=== PATIENT | female | born 1940 | race Caucasian/White ===

== ENCOUNTER 2019-12-16 10:51 | Inpatient (IN) | payer OTHER, MEDICARE, SELFPAY ==
[~2019-12-16] VITALS: Ht 152.4 cm; Wt 65.8 kg
[2019-12-16 10:55] VITALS: BP_SYST 129
--- NOTE | 2019-12-16 10:55 | NUR ---
Patient to ER bed 06 to gown for evaluation. Side rails up.
--- NOTE | 2019-12-16 10:58 | NUR ---
Patient arrived in the ED FOR MEDICAL CLEARANCE BEFORE CHECKING IN AT [facility]. Denied any chest pain or shortness of breath. Denied any fevers, chills, nausea or vomiting. Patient is alert and oriented x4, respirations even and unlabored, speaking in full sentences, and ambulating with a steady gait. VSS, pain level 0/10. SON AT BEDSIDE. Informed of the approximate wait time. Instructed to notify ED staff for any changes in condition or worsening of symptoms while waiting to be seen by an ED provider. Patient verbalized understanding.
--- NOTE | 2019-12-16 11:07 | NUR ---
ER Dr. Dubose at bedside examining patient.
--- NOTE | 2019-12-16 11:14 | NUR ---
central sterile supply technician at bedside collecting blood specimen as ordered by Dr. Dubose. Patient tolerated the procedure well.
[2019-12-16 11:34] LABS: BASOPHILS % (AUTO) 0.8 % (0.0-2.0); EOSINOPHILS # (AUTO) 0.1 K/uL (0.0-0.4); EOSINOPHILS % (AUTO) 1.3 % (0.0-4.0); HEMOGLOBIN 13.5 g/dL (12.0-16.0); LYMPHOCYTES # (AUTO) 0.8 K/uL (1.0-5.5); LYMPHOCYTES % (AUTO) 17.2 % (20.5-51.5); MEAN CORPUSCULAR HEMOGLOBIN 30 pg (27-31); MEAN CORPUSCULAR HGB CONC 33 % (32-36); MEAN CORPUSCULAR VOLUME 93 fL (79.0-98.0); MONOCYTES # (AUTO) 0.3 K/uL (0.0-1.0); MONOCYTES % (AUTO) 6.7 % (1.7-9.3); NEUTROPHILS # (AUTO) 3.4 K/uL (1.8-7.7); PLATELET COUNT (AUTO) 88 K/uL (130-430); RED BLOOD CELL COUNT(AUTO) 4.42 MIL/uL (4.2-6.2); RED CELL DISTRIBUTION WIDTH 16.7 % (9.0-15.0); WHITE BLOOD COUNT (AUTO) 4.6 K/uL (4.8-10.8)
--- NOTE | 2019-12-16 11:39 | NUR ---
X-ray done at bedside as ordered by Dr. Dubose. Patient tolerated the procedure well.
[2019-12-16 11:43] LABS: ANION GAP 11 (5-15); CALCIUM 8.8 mg/dL (8.4-11.0); CHLORIDE 101 mmol/L (98-107); CREATININE 0.73 mg/dL (0.55-1.30); GLUCOSE 98 mg/dL (70-99); POTASSIUM 3.8 mmol/L (3.5-5.1); SODIUM SERUM 141 mmol/L (136-145); UREA NITROGEN, BLOOD 20 mg/dL (8-21)
[2019-12-16 11:49] LABS: ALANINE AMINOTRANSFERASE 40 U/L (12-78); ALBUMIN 3.7 g/dL (3.4-4.8); ASPARTATE AMINOTRANSFERASE 61 U/L (10-37); TOTAL BILIRUBIN 0.6 mg/dL (0.0-1.0)
[2019-12-16 11:50] LABS: INR 0.9 (0.8-1.2); PROTHROMBIN TIME 9.5 SECS (9.5-12.5)
[2019-12-16 12:14] LABS: ACETAMINOPHEN < 1 ug/mL (1-30); ALCOHOL, BLOOD 358 mg/dL (<10)
--- NOTE | 2019-12-16 14:34 | NUR ---
Received admitting orders from Dr. Maldonado. Awaiting bed assignment.
--- NOTE | 2019-12-16 14:44 | NUR ---
Patient will be admitted to care of Dr. Maldonado. Admitted to Telemetry unit. Will go to room 105A. Belongings list completed. Complete and up to date summary report printed. SBAR report to be given at bedside with opportunity for questions.
[2019-12-16] MEDS ORDERED: FOLIC ACID 1 MG, THIAMINE HCL 100 MG, MAGNESIUM SULFATE 1 GM, MVI 10 ML in NACL 0.9% 1,... IV ONE ×2 (14:45→15:15)
[2019-12-16] MEDS ORDERED: NACL 0.9% 1,000 ML IV ONE (14:45)
--- NOTE | 2019-12-16 14:55 | NUR ---
ADMIT NOTE Received pt from ER to the floor with a diagnosis of Acute Alcohol Withdrawal. Admission process initiated. patient oriented to pain management, safety and call light-teach back done.
[2019-12-16 15:03] VITALS: BP_SYST 125
[2019-12-16] MEDS ORDERED: ACETAMINOPHEN 325 MG TABLET PO PRN (15:15)
[2019-12-16] MEDS ORDERED: LORazepam 2 MG/ML VIAL IVP PRN (15:15)
[2019-12-16] MEDS ORDERED: ONDANSETRON HCL 4 MG/2 ML VIAL IVP PRN (15:15)
[2019-12-16] MEDS ORDERED: FOLIC ACID 1 MG, MVI 10 ML in NACL 0.9% 1,000 ML IV ONE (15:15)
[2019-12-16] MEDS ORDERED: POTASSIUM CHLORIDE 20 MEQ TAB.PRT.SR PO PRN (15:15)
[2019-12-16] MEDS ORDERED: DOCUSATE SODIUM 100 MG CAPSULE PO PRN (15:15)
[2019-12-16] MEDS ORDERED: MAGNESIUM SULFATE 50 ML IV PRN (15:15)
[2019-12-16] MEDS ORDERED: MUPIROCIN 2% TOPICAL OINTMENT 22 GM NS PRN (15:15)
[2019-12-16] MEDS ORDERED: THIAMINE HCL 100 MG, MAGNESIUM SULFATE 1 GM in NS 100 ML IV ONE (15:15)
[2019-12-16] MEDS ORDERED: ZOLPIDEM TARTRATE 5 MG TABLET PO PRN (15:15)
[2019-12-16] MEDS ORDERED: THIAMINE HCL 100 MG TABLET PO ONE (15:30)
[2019-12-16] MEDS ORDERED: FOLIC ACID 1 MG TABLET PO ONE (15:30)
[2019-12-16] MEDS: chlordiazePOXIDE HCL 25 MG CAPSULE PO SCH ×2 (15:54→21:29)
--- NOTE | 2019-12-16 16:20 | NUR ---
HELPED PT CALL THROUGH PHONE. NO ACUTE DISTRESS NOTED. ALL NEEDS MET. CALL LIGHT IN REACH. CONTINUE TO MONITOR.
--- NOTE | 2019-12-16 16:26 | NUR ---
PT STATED AND CONSENTED TO CALL CACHORRO DIAMOND FOR [employer].
--- NOTE | 2019-12-16 16:29 | NUR ---
SPOKE TO CACHORRO DIAMOND [phone], STATED HE WILL BE ABLE TO GIVE A MED LIST OVER THE PHONE WHEN HE CAN GET THE MEDICATION LIST AT THE HOUSE. GAVE HIM NUMBER TO CALL BACK [phone].
--- NOTE | 2019-12-16 18:21 | NUR ---
PT C/O FEELING ANXIOUS, ADMINISTERED PRN ANXIETY MED ORDERED PER MD, EDUCATION GIVEN, TOLERATED WELL. CONTINUE TO MONITOR.
--- NOTE | 2019-12-16 18:55 | NUR ---
CLOSING NOTES PT AWAKE ALERT AND ORIENTED. WATCHING TV IN BED. NONLABORED BREATHING NOTED ON ROOM AIR. IV LINE INTACT AND PATENT, NO SIGNS OF INFILTRATION NOTED, FLUIDS RUNNING ORDERED. NO ACUTE DISTRESS NOTED. ALL NEEDS MET. CALL LIGHT IN REACH. FALL AND ASPIRATION PRECAUTIONS IN PLACE. WILL ENDORSE TO [facility] NURSE INCLUDING MED RECON INFO, STILL AWAITING CALL BACK.
--- NOTE | 2019-12-16 19:30 | NUR ---
Initial Notes: Received report from daysantwanft RN. Patient is in bed, resting. No acute distress. Breathing is even, nonlabored on room air. IV fluids infusing as ordered. Bed is locked at lowest position. Bed alarm on. Side rails up x3. Call light is with patient. Safety and fall precautions in place. Will continue with plan of care.
[2019-12-16 20:00] VITALS: BP_SYST 133
[2019-12-16] MEDS ORDERED: HEPARIN SODIUM,PORCINE 5,000 UNITS/ML VIAL SUBCUT SCH (21:00)
--- NOTE | 2019-12-16 22:00 | NUR ---
Rounds: Patient is resting in bed. No acute distress. Breathing is even, nonlabored on room air. Call light is with patient. Safety and fall precautions in place. Will continue to monitor.
[2019-12-17] VITALS: BP_SYST 136
--- NOTE | 2019-12-17 00:15 | NUR ---
Rounds: Patient is sleeping in bed. No acute distress. Respirations are even, nonlabored on room air. Call light is with patient. Safety and fall precautions in place. Will continue monitoring.
--- NOTE | 2019-12-17 02:31 | NUR ---
Rounds: Patient is sleeping in bed. No s/s acute distress. Even, nonlabored breathing on room air. Call light is with patient. Safety and fall precautions in place. Will continue monitoring.
--- NOTE | 2019-12-17 04:30 | NUR ---
Rounds: Patient is sleeping in bed. No acute distress. Breathing is even, nonlabored on room air. Call light is with patient. Safety and fall precautions in place. Will continue monitoring.
[2019-12-17 06:11] LABS: BASOPHILS % (AUTO) 0.7 % (0.0-2.0); EOSINOPHILS # (AUTO) 0.1 K/uL (0.0-0.4); EOSINOPHILS % (AUTO) 2.4 % (0.0-4.0); HEMATOCRIT 36.7 % (36-48); LYMPHOCYTES # (AUTO) 0.8 K/uL (1.0-5.5); LYMPHOCYTES % (AUTO) 24.3 % (20.5-51.5); MEAN CORPUSCULAR HEMOGLOBIN 30 pg (27-31); MEAN CORPUSCULAR HGB CONC 33 % (32-36); MEAN CORPUSCULAR VOLUME 93 fL (79.0-98.0); MONOCYTES # (AUTO) 0.3 K/uL (0.0-1.0); NEUTROPHILS # (AUTO) 2.2 K/uL (1.8-7.7); NEUTROPHILS % (AUTO) 63.6 % (40.0-70.0); PLATELET COUNT (AUTO) 67 K/uL (130-430); RED BLOOD CELL COUNT(AUTO) 3.96 MIL/uL (4.2-6.2); RED CELL DISTRIBUTION WIDTH 16.7 % (9.0-15.0); WHITE BLOOD COUNT (AUTO) 3.5 K/uL (4.8-10.8)
--- NOTE | 2019-12-17 06:24 | NUR ---
Closing note: Patient is in bed, resting. Showing no signs of acute distress. Breathing is even, nonlabored on room air. IV site is patent, intact, and saline locked. All needs met. Bed is locked at lowest position. Side rails up. Bed alarm on. Call light is with patient. Safety and fall precautions in place. Will endorse care to dayshift RN.
[2019-12-17 06:30] LABS: ANION GAP 5 (5-15); CALCIUM 8.5 mg/dL (8.4-11.0); CHLORIDE 100 mmol/L (98-107); CREATININE 0.61 mg/dL (0.55-1.30); GLUCOSE 112 mg/dL (70-99); POTASSIUM 3.6 mmol/L (3.5-5.1); SODIUM SERUM 135 mmol/L (136-145); UREA NITROGEN, BLOOD 17 mg/dL (8-21)
--- NOTE | 2019-12-17 07:31 | NUR ---
Opening Note received bedside SBAR report from cook night RN, patient resting in bed, respirations even and unlabored on room air, no acute distress noted, room close to nurses station, educated patient on use of call light and asked to call for assistance, patient verbalized understanding, call light in reach, bed in low and locked position, bed alarm on.
--- NOTE | 2019-12-17 07:55 | NUR ---
Physician Rounds Dr. Maldonado at bedside examining patient. Addendum: 12/17/19 at 0840 by Pavithra Alejandre RN informed Dr. Maldonado that patients platelets this morning were 67, orders received to d/c heparin, verified with read back.
[2019-12-17 08:00] VITALS: BP_SYST 147
[2019-12-17] MEDS: FOLIC ACID 1 MG TABLET PO SCH (08:23)
[2019-12-17] MEDS: THIAMINE HCL 100 MG TABLET PO SCH (08:23)
[2019-12-17] MEDS: chlordiazePOXIDE HCL 25 MG CAPSULE PO SCH ×3 (08:23→20:05)
--- NOTE | 2019-12-17 08:40 | NUR ---
Bedside Commode patient requesting to use bedside commode, assisted patient to bedside commode, maximum assistance required for transfer, patient had BM x1, formed, voided x1, unable to collect urine sample due to it being contaminated with stool, linen changed, assisted patient with cleaning, patient back resting in bed, patient tolerated well.
--- NOTE | 2019-12-17 08:58 | NUR ---
CONSULT PSYCH ALCOHOL ABUSE DR GIRALDO,SAID [phone] S/W [employer] FACESHEET FAXED TO [phone]
[2019-12-17 09:39] LABS: ALBUMIN 3.2 g/dL (3.4-4.8); BILIRUBIN,DIRECT 0.3 mg/dL (0.0-0.3); THYROID STIMULATING HORMONE 2.12 uIu/mL (0.34-4.82); TOTAL BILIRUBIN 1.1 mg/dL (0.0-1.0)
--- NOTE | 2019-12-17 10:49 | NUR ---
RN Rounds patient sitting up in bed, resting, patient denies any pain, no acute distress noted.
[2019-12-17 12:09] VITALS: BP_SYST 133
--- NOTE | 2019-12-17 12:30 | NUR ---
Physical Therapy patient ambulating in wheeler with physical therapy, tolerating well.
--- NOTE | 2019-12-17 14:05 | NUR ---
Store Product Demonstrator: met with ETOH pt. HR MANAGER met with pt. bedside. She was alert and awake. She was asking for coffee and her ultrasound and then she wanted to go home. She was agreeable to this interview. When asked, she stated she was in the hospital for drinking too much. She said about two months ago, she fell because she had been drinking. She had to have hip surgery. Pt. stated she has tried AA and Jesika Meier, but now she just wants to go home. When asked if she has ever been Dx. with any mental health issues, pt. said no, but she feels she is depressed. She said she would talk to the attending, Dr. Maldonado. Pt. denied having any suicidal ideations. She said she has family support. She drinks 1/2-1 pint of Vodka daily and will consider decreasing this amount. She said she has to manage a lot of property, but hired a reliable qa manager. She said she still needs to decompress at night and will have a drink. HR MANAGER explained to pt. if she were to find a therapist, she would get assistance with support, other efficient coping mechanisms and help her with insight why she is abusing drinking. HR MANAGER asked pt. if she could leave some resources for her. Pt. was agreeable. HR MANAGER will remain available as needed.
--- NOTE | 2019-12-17 15:36 | NUR ---
RN Rounds patient sitting up in bed drinking coffee, respirations even and unlabored on room air, patient denies any pain, no acute distress noted.
[2019-12-17 16:12] VITALS: BP_SYST 130
--- NOTE | 2019-12-17 17:37 | NUR ---
RN Rounds patient sitting up in bed eating dinner, tolerating well, no acute distress noted, patient denies any nausea or vomiting, patient denies any pain.
--- NOTE | 2019-12-17 18:17 | NUR ---
Patient out of bed patient attempting to ambulate without calling for assistance, unsteady gait, patient using bedside commode for support, RN immediately assisted patient, directed patient back to bed, patient yelled "if Sandra can have his temperature taken six times a day then I can have mine taken once", patient believes that she is going to get COVID-19 from being hospitalized, assisted patient back to bed, took patients temperature with charge out clerk at bedside, temp 98.4, patient is now calm, reinforced education on fall prevention and encouraged patient to call for assistance, patient verbalized understanding, call light in reach, bed in low and locked position, bed alarm on, patient sitting up in bed eating dinner.
--- NOTE | 2019-12-17 19:18 | NUR ---
Closing Note bedside SBAR report given to receiving RN, patient resting in bed, respirations even and unlabored on room air, room close to nurses station, side rails padded, educated patient on use of call light and asked to call for assistance, patient verbalized understanding, call light in reach, bed in low and locked position, bed alarm on, care endorsed to Raisa RESENDEZ.
--- NOTE | 2019-12-17 19:30 | NUR ---
Initial Notes: Received report from dayshift RN. Patient is in bed, watching TV. No acute distress. Breathing is even, nonlabored on room air. IV is patent, intact and saline locked. Bed is locked at lowest position. Bed alarm on. Side rails up x3. Call light is with patient. Safety and fall precautions in place. Will continue with plan of care.
[2019-12-17 20:00] VITALS: BP_SYST 130
[2019-12-18] VITALS: BP_SYST 146
--- NOTE | 2019-12-18 00:15 | NUR ---
Rounds: Patient is watching TV in bed. Showing no signs of acute distress. Respirations are even, nonlabored on room air. Call light is with patient. Safety and fall precautions in place. Will continue monitoring.
--- NOTE | 2019-12-18 02:30 | NUR ---
Rounds: Patient is in bed, watching TV. No signs of acute distress. Even, nonlabored breathing on room air. Call light is with patient. Safety and fall precautions in place. Will continue to monitor.
--- NOTE | 2019-12-18 04:38 | NUR ---
Rounds: Patient is sleeping in bed. No acute distress. Even, nonlabored respirations. Call light is with patient. Safety and fall precautions in place. Will continue to monitor.
--- NOTE | 2019-12-18 06:09 | NUR ---
Closing note: Patient is in bed, resting. Showing no signs of acute distress. Breathing is even, nonlabored on room air. IV site is patent, intact, and saline locked. All needs met. Bed is locked at lowest position. Side rails up x3. Bed alarm on. Call light is with patient. Safety and fall precautions in place. Will endorse care to dayshift RN.
[2019-12-18 06:22] LABS: BASOPHILS % (AUTO) 0.6 % (0.0-2.0); EOSINOPHILS # (AUTO) 0.2 K/uL (0.0-0.4); EOSINOPHILS % (AUTO) 5.4 % (0.0-4.0); HEMATOCRIT 40.8 % (36-48); HEMOGLOBIN 13.3 g/dL (12.0-16.0); LYMPHOCYTES % (AUTO) 30.9 % (20.5-51.5); MEAN CORPUSCULAR HEMOGLOBIN 30 pg (27-31); MEAN CORPUSCULAR HGB CONC 33 % (32-36); MEAN CORPUSCULAR VOLUME 93 fL (79.0-98.0); MONOCYTES # (AUTO) 0.3 K/uL (0.0-1.0); MONOCYTES % (AUTO) 8.3 % (1.7-9.3); NEUTROPHILS # (AUTO) 1.8 K/uL (1.8-7.7); NEUTROPHILS % (AUTO) 54.8 % (40.0-70.0); PLATELET COUNT (AUTO) 71 K/uL (130-430); RED BLOOD CELL COUNT(AUTO) 4.39 MIL/uL (4.2-6.2); RED CELL DISTRIBUTION WIDTH 16.3 % (9.0-15.0); WHITE BLOOD COUNT (AUTO) 3.3 K/uL (4.8-10.8)
[2019-12-18 06:37] LABS: ANION GAP 7 (5-15); CALCIUM 8.8 mg/dL (8.4-11.0); CHLORIDE 101 mmol/L (98-107); CREATININE 0.56 mg/dL (0.55-1.30); GLUCOSE 95 mg/dL (70-99); POTASSIUM 3.7 mmol/L (3.5-5.1); SODIUM SERUM 136 mmol/L (136-145); UREA NITROGEN, BLOOD 12 mg/dL (8-21)
--- NOTE | 2019-12-18 07:19 | NUR ---
Opening Note received bedside SBAR report from shift supervisor film processing RN, patient resting in bed, respirations even and unlabored on room air, no acute distress noted, room close to nurses station, side rails padded, educated patient on use of call light and asked to call for assistance, patient verbalized understanding, call light in reach, bed in low and locked position, bed alarm on.
[2019-12-18] MEDS: chlordiazePOXIDE HCL 25 MG CAPSULE PO SCH ×3 (07:47→20:35)
[2019-12-18] MEDS: THIAMINE HCL 100 MG TABLET PO SCH (07:47)
[2019-12-18] MEDS: FOLIC ACID 1 MG TABLET PO SCH (07:47)
[2019-12-18 08:06] VITALS: BP_SYST 139
--- NOTE | 2019-12-18 09:26 | NUR ---
RN Rounds patient sitting up in bed eating breakfast, tolerating well, patient denies any nausea or vomiting, patient denies any pain.
--- NOTE | 2019-12-18 09:42 | NUR ---
Nutrition Update Mac Scale 18 noted. Pt admitted for acute alcohol withdrawal. Diet: regular BMI: 28.3 kg/m2 RD to follow per nutrition care standards.
[2019-12-18 12:12] VITALS: BP_SYST 138
--- NOTE | 2019-12-18 12:15 | NUR ---
RN Rounds patient sitting up in bed eating lunch, patient complaint of food being too dry, called dietary, dietary provided patient with gravy, provided patient with jello and pudding, patient sitting up and eating lunch.
--- NOTE | 2019-12-18 13:13 | NUR ---
Physician Rounds Dr. Whitmore at bedside speaking with patient.
--- NOTE | 2019-12-18 14:30 | NUR ---
Spoke with Senior Strategy Manager spoke with case mary De León, she is aware of orders d/c planning for SNF placement, informed her that patient is aware of orders for SNF placement for PT and patient is agreeable, per Genet she will speak with the patient and work on finding placement.
--- NOTE | 2019-12-18 14:56 | NUR ---
Bed bath patient assisted with bed bath by MEDICAL AFFAIRS SPECIALIST, patient tolerated well, linen and gown changed, patient resting in bed.
[2019-12-18 15:12] LABS: BILIRUBIN,URINE NEGATIVE (NEGATIVE); BLOOD, URINE NEGATIVE (NEGATIVE); CLARITY/URINE CLEAR (CLEAR); COLOR,URINE YELLOW (YELLOW); GLUCOSE,URINE NEGATIVE (NEGATIVE); KETONES,URINE NEGATIVE (NEGATIVE); LEUKOCYTE ESTERASE ,URINE TRACE (NEGATIVE); NITRITE, URINE NEGATIVE (NEGATIVE); PROTEIN URINE NEGATIVE (NEGATIVE); UROBILINOGEN,URINE 0.2 (0.2-1.0)
[2019-12-18 16:00] LABS: BACTERIA,URINE MODERATE /HPF (None Seen); RBC,URINE 0-3 /HPF (0-3)
[2019-12-18 16:02] LABS: MUCUS,URINE None Seen /LPF (None Seen)
--- NOTE | 2019-12-18 16:08 | NUR ---
Discharge Planning: DCP faxed pt referral to [facility] ([phone]) DCP to follow up Addendum: 12/22/19 at 1221 by Marlene Small DP LATE ENTRY___ Patient went home with [facility] ([phone]) patient was seen Sunday12/20/2019.
[2019-12-18 16:29] VITALS: BP_SYST 132
--- NOTE | 2019-12-18 17:25 | NUR ---
RN Rounds patient sitting up in bed eating dinner, tolerating well, patient denies any nausea or vomiting, no acute distress noted.
--- NOTE | 2019-12-18 19:05 | NUR ---
Closing Note bedside SBAR report given to receiving RN, patient resting in bed, respirations even and unlabored on room air, no acute distress noted, patient denies any pain, side rails padded, room close to nurses station, educated patient on use of call light and asked to call for assistance, patient verbalized understanding, call light in reach, bed in low and locked position, bed alarm on, care endorsed to shift manager RN.
--- NOTE | 2019-12-18 19:20 | NUR ---
CHANGE OF SHIFT; pt. awake, sitting up at the edge of the bed when received. denies any discomfort, wants something to drink. instructed to stay in bed and use of call light, verbalized understanding.
[2019-12-18 20:00] VITALS: BP_SYST 111
[2019-12-18] MEDS: CIPROFLOXACIN HCL 500 MG TABLET PO SCH (20:40)
--- NOTE | 2019-12-18 20:40 | NUR ---
NOTES: pt. had pudding and juice and due meds given. needs attended. IV lock on left antecubital. on threat monitoring analyst and shows sinus rhythm. moves all extremities. denies any pain nor discomfort. on room air, no shortness of breath. call light within reach.
--- NOTE | 2019-12-18 23:05 | NUR ---
NOTES: pt. sleeping when checked. on fall risk precaution.
[2019-12-19] VITALS: BP_SYST 127
--- NOTE | 2019-12-19 00:33 | NUR ---
NOTES: bed alarm went off, pt. got out of bed without calling, assisted to use BSC and voided. back to bed and reminded to use call light pt. room close to nurses station. bed alarm on.
--- NOTE | 2019-12-19 03:25 | NUR ---
NOTES: pt. remain sleeping. cardiac pattern unchanged. fall risk and seizure precautions.
--- NOTE | 2019-12-19 04:30 | NUR ---
NOTES: pt. sleeping when checked, no acute distress. continue to monitor.
--- NOTE | 2019-12-19 06:02 | NUR ---
NOTES: pt. awake, denies any pain nor discomfort, offered BSC pest controller assistant, does not feel or need to go at this time.
--- NOTE | 2019-12-19 06:35 | NUR ---
CLOSING NOTES; pt. went back to sleep, no distress. on fall risk precaution. IV lock patent. on fall risk precaution. call light within reach, forget to call and use call light if he needs to go BSC. for further care and assistance.
[2019-12-19 06:40] LABS: BASOPHILS % (AUTO) 0.8 % (0.0-2.0); EOSINOPHILS # (AUTO) 0.2 K/uL (0.0-0.4); HEMATOCRIT 39.3 % (36-48); HEMOGLOBIN 12.7 g/dL (12.0-16.0); LYMPHOCYTES # (AUTO) 0.9 K/uL (1.0-5.5); LYMPHOCYTES % (AUTO) 28.2 % (20.5-51.5); MEAN CORPUSCULAR HEMOGLOBIN 30 pg (27-31); MEAN CORPUSCULAR HGB CONC 32 % (32-36); MEAN CORPUSCULAR VOLUME 94 fL (79.0-98.0); MONOCYTES # (AUTO) 0.4 K/uL (0.0-1.0); MONOCYTES % (AUTO) 11.6 % (1.7-9.3); NEUTROPHILS # (AUTO) 1.7 K/uL (1.8-7.7); NEUTROPHILS % (AUTO) 52.4 % (40.0-70.0); PLATELET COUNT (AUTO) 71 K/uL (130-430); RED BLOOD CELL COUNT(AUTO) 4.19 MIL/uL (4.2-6.2); RED CELL DISTRIBUTION WIDTH 16.1 % (9.0-15.0); WHITE BLOOD COUNT (AUTO) 3.2 K/uL (4.8-10.8)
[2019-12-19 07:02] LABS: ANION GAP 7 (5-15); CALCIUM 8.3 mg/dL (8.4-11.0); CHLORIDE 103 mmol/L (98-107); CREATININE 0.69 mg/dL (0.55-1.30); GLUCOSE 110 mg/dL (70-99); POTASSIUM 3.4 mmol/L (3.5-5.1); SODIUM SERUM 139 mmol/L (136-145); UREA NITROGEN, BLOOD 12 mg/dL (8-21)
[2019-12-19 08:00] VITALS: BP_SYST 106
--- NOTE | 2019-12-19 08:00 | NUR ---
Routine Patient sitting on side of bed with no distress noted. Patient stable at this time.
[2019-12-19] MEDS ORDERED: FOLI-43 PO (08:16)
[2019-12-19] MEDS ORDERED: THIA100T70 PO (08:17)
[2019-12-19] MEDS: chlordiazePOXIDE HCL 25 MG CAPSULE PO SCH ×2 (08:21→15:04)
[2019-12-19] MEDS: FOLIC ACID 1 MG TABLET PO SCH (08:21)
[2019-12-19] MEDS: THIAMINE HCL 100 MG TABLET PO SCH (08:21)
--- NOTE | 2019-12-19 08:23 | NUR ---
Routine Patient sitting on side of bed with no complaint of any pain. Scheduled medications given per order. Patient stable at this time. Addendum: 12/19/19 at 0824 by Jenn Lieberman RN Dr. Maldonado at bedside.
[2019-12-19] MEDS: CIPROFLOXACIN HCL 500 MG TABLET PO SCH (09:14)
--- NOTE | 2019-12-19 09:15 | NUR ---
Routine Scheduled po abx given per order. Patient denies any pain; stable at this time.
--- NOTE | 2019-12-19 09:37 | NUR ---
DISCHARGE PLANNING Order for home with home health. Spoke with pt @ bedside, lives in 1 story house, address on face sheet incorrect, informed admitting. Lives with . is in [place] but will be back home tomorrow. Does not want to go to SNF, is agreeable with home health with no preference. [facility] has regional director of admissions that will be coming over today, & she has helped her in past & will be avail to assist if needed. [facility] she can also call her tangible personal property appraiser, Jose Luis Baum to assist her if needed, he lives in one of her properties in [place]. will be home tomorrow to assist if needed. Address: [address] [place] [id number]; cell [phone]. ye Rosario logistics planner aware.
--- NOTE | 2019-12-19 10:00 | NUR ---
Routine Patient resting quietly in bed with eyes closed; no distress noted. Patient stable.
[2019-12-19 10:20] VITALS: BP_SYST 106
--- NOTE | 2019-12-19 11:10 | NUR ---
Routine PRN medication given for K+ 3.4. Patient resting comfortably in bed. Stable.
--- NOTE | 2019-12-19 11:40 | NUR ---
Discharge instructions Both written and verbal discharge instructions given to patient. Patient verbalized understanding of instructions. All belongings with patient. Patient stable.
[2019-12-19 12:00] VITALS: BP_SYST 121
--- NOTE | 2019-12-19 12:30 | NUR ---
Routine Called granddaughterMayela at [phone] and advised that patient has discharge order, she is dressed and ready for garbage pick up worker. Per Mayela, she will be here at 2pm.
--- NOTE | 2019-12-19 15:05 | NUR ---
Routine Patient sitting in wheelchair in room. Scheduled medication given per order. Patient stable.
--- NOTE | 2019-12-19 15:20 | NUR ---
Routine Patient sitting in wheelchair at nurses' station; waiting for pick pulling machine operator to go home. Patient stable.
--- NOTE | 2019-12-19 15:50 | NUR ---
Discharge Peripheral IV removed intact with no active bleeding; site covered with gauze. Patient discharged to home in stable condition.
--- NOTE | 2019-12-24 13:59 | NUR ---
Discharge Follow Up Phone Call Phoned patient, , and spoke with patient's son, Jose Luis. Jose Luis stated that patient was doing well. [facility] has been out to see patient and PT has begun. She has doctors' appointments scheduled but not with her PCP. Jose Luis agreed to call PCP, Dr Bazzi, to make an appointment. No questions or concerns.
== END 2019-12-19 15:50 | disposition home or self-care (01) | DRG 897 ==
LOC: SED 10:51 → STU 14:31
PROVIDERS: ADMIT General Practice; ATTEND General Practice
DX: F10.239 Alcohol dependence with withdrawal, unspecified (principal); D69.6 Thrombocytopenia, unspecified; E03.9 Hypothyroidism, unspecified; F32.9 Major depressive disorder, single episode, unspecified; Z20.828 Contact with and (suspected) exposure to other viral communicable diseases; I50.9 Heart failure, unspecified; R26.81 Unsteadiness on feet
CPT/HCPCS: 36415; 71045; 76700-TC; 80048; 80053; 80076; 81000-TC; 83036; 83735-TC; 83880; 84443-TC; 84484; 85025; 85610-TC; 85730-TC; 87086; 93005; 97110-GP; 97116-GP; 97530-GP; 99285; G0378; G0480; G0481; G0482; J1644; J2060; J3411; J3475; J3490; J7030